=== PATIENT | female | born 2005 | race Caucasian/White ===

== ENCOUNTER 2024-02-16 05:36 | Emergency (ER) | payer MEDICAID ==
[~2024-02-16] VITALS: Ht 162.6 cm; Wt 84.0 kg
[2024-02-16 05:44] VITALS: O2SAT 99
[2024-02-16] MEDS: ACETAMINOPHEN 325MG TABLET PO ONE (06:15)
[2024-02-16 06:16] VITALS: BP 113/72
[2024-02-16] MEDS: KETOROLAC 30MG/ML VIAL IM ONE (06:16)
[2024-02-16] MEDS ORDERED: NAPR-681 MT (07:34)
[2024-02-16 07:49] VITALS: PULSE 79; RESP 18; TEMP 36.89184; O2SAT 100
== END 2024-02-16 07:50 | disposition home or self-care (01) ==
LOC: ER 05:36
DX: M25.562 Pain in left knee (principal); M79.644 Pain in right finger(s); Z90.49 Acquired absence of other specified parts of digestive tract
CPT/HCPCS: 99284; 73120; 73562; 96372; 73140; J1885

== ENCOUNTER 2024-09-13 00:44 | Emergency (ER) | payer MEDICAID ==
[~2024-09-13] VITALS: Ht 160 cm; Wt 92.0 kg
[~2024-09-13 00:44] MED LIST: NAPR-681 MT
[2024-09-13 01:25] VITALS: TEMP 37; O2SAT 99
[2024-09-13 01:51] LABS: BASOPHILS % 0.3 % (0.0-2.0); HEMATOCRIT. 39.7 % (36.0-48.0); HEMOGLOBIN. 13.7 g/dL (12.0-16.0); LYMPHOCYTES % 24.1 % (20.0-50.0); MEAN CORPUSCULAR HEMOGLOBIN 29.2 pg (28.0-32.0); MEAN CORPUSCULAR HGB CONC 34.4 g/dL (31.0-37.0); MEAN CORPUSCULAR VOLUME 84.8 fL (81.0-99.0); MEAN PLATELET VOLUME 10.3 fl (7.4-10.4); MONOCYTES % 10.7 % (2.0-8.0); NEUTROPHILS % 63.9 % (40.0-76.0); PLATELET 192 x1000/uL (130-400); RED BLOOD CELL COUNT 4.69 mill/uL (4.2-5.4); WHITE BLOOD COUNT 11.9 x1000/uL (4.5-11.0)
[2024-09-13 01:54] LABS: CHLORIDE 102 mEq/L (98-107); POTASSIUM 3.4 mEq/L (3.5-5.1); SODIUM 140 mEq/L (136-145)
[2024-09-13 01:55] LABS: CALCIUM 9.4 mg/dL (8.7-10.4); CARBON DIOXIDE 29 mEq/L (21-32)
[2024-09-13 02:00] LABS: CREATININE 0.8 mg/dL (0.6-1.0); GLUCOSE 106 mg/dL (70-105)
[2024-09-13 02:01] LABS: UREA NITROGEN BLOOD 9 mg/dL (9-23)
[2024-09-13 02:02] LABS: ALANINE AMINOTRANSFERASE 18 IU/L (10-49); ALBUMIN 4.6 g/dL (3.2-4.8); ASPARTATE AMINOTRANSFERASE 22 IU/L (<34); BILIRUBIN DIRECT 0.1 mg/dL (<=3.0)
[2024-09-13 02:03] LABS: BILIRUBIN TOTAL 0.4 mg/dL (0.1-1.0); PROTEIN TOTAL 7.7 g/dL (6.0-8.3)
[2024-09-13 06:00] LABS: CLARITY URINE TURBID (CLEAR); COLOR URINE DARK YELLOW (YELLOW); GLUCOSE URINE NEGATIVE (NEGATIVE); KETONES URINE TRACE (NEGATIVE); LEUKOCYTE ESTERASE URINE 1+ (NEGATIVE); NITRITE URINE NEGATIVE (NEGATIVE); OCCULT BLOOD URINE 3+ (NEGATIVE); PROTEIN URINE 1+ (NEGATIVE); SPECIFIC GRAVITY URINE 1.038 (1.005-1.030)
[2024-09-13 07:03] LABS: SQUAMOUS EPITHELIAL CELL URINE 2+ /lpf (RARE/1+)
[2024-09-13 07:10] LABS: BACTERIA URINE 1+
[2024-09-13] MEDS ORDERED: CEPH500C2 MT (07:16)
[2024-09-13 07:48] VITALS: BP 124/71; PULSE 87; RESP 16; O2SAT 99
== END 2024-09-13 07:54 | disposition home or self-care (01) ==
LOC: ER 00:44
DX: N39.0 Urinary tract infection, site not specified (principal); Z79.1 Long term (current) use of non-steroidal anti-inflammatories (NSAID); Z90.49 Acquired absence of other specified parts of digestive tract; Z79.899 Other long term (current) drug therapy
CPT/HCPCS: 36415; 74176; 80048; 80076; 81003; 81025; 85025; 99284

== ENCOUNTER 2024-12-03 02:56 | Emergency (ER) | payer MEDICAID ==
[~2024-12-03] VITALS: Ht 160 cm; Wt 93.4 kg
[~2024-12-03 02:56] MED LIST changes: +CEPH500C2 MT
[2024-12-03 02:58] VITALS: O2SAT 100
[2024-12-03 03:22] LABS: BASOPHILS % 0.5 % (0.0-2.0); EOSINOPHILS % 2.1 % (0.0-5.0); HEMATOCRIT. 38.5 % (36.0-48.0); HEMOGLOBIN. 13.0 g/dL (12.0-16.0); LYMPHOCYTES % 37.1 % (20.0-50.0); MEAN PLATELET VOLUME 10.4 fl (7.4-10.4); MONOCYTES % 9.6 % (2.0-8.0); NEUTROPHILS % 50.7 % (40.0-76.0); PLATELET 191 x1000/uL (130-400); RED BLOOD CELL COUNT 4.63 mill/uL (4.2-5.4); RED CELL DISTRIBUTION WIDTH 13.9 % (11.6-14.6)
[2024-12-03 03:41] LABS: CREATININE 0.8 mg/dL (0.6-1.0); UREA NITROGEN BLOOD 8 mg/dL (9-23)
[2024-12-03] MEDS ORDERED: KETOROLAC 15MG/ML VIAL IM ONE (03:45)
[2024-12-03] MEDS ORDERED: ONDANSETRON 4MG ODT PO ONE (03:45)
[2024-12-03] MEDS: ONDANSETRON HCL 4MG/2ML INJ IV ONE (03:47)
[2024-12-03] MEDS: KETOROLAC 15MG/ML VIAL IV ONE (03:47)
[2024-12-03 04:05] LABS: ASPARTATE AMINOTRANSFERASE 17 IU/L (<34); BILIRUBIN DIRECT < 0.1 mg/dL (<=3.0); BILIRUBIN TOTAL 0.3 mg/dL (0.1-1.0); PROTEIN TOTAL 7.2 g/dL (6.0-8.3)
[2024-12-03 04:33] LABS: HCG SCREEN NEGATIVE
[2024-12-03] MEDS ORDERED: TAMS-54 MT (05:25)
[2024-12-03] MEDS ORDERED: HYDR-4001 MT (05:25)
[2024-12-03] MEDS: IOHEXOL-300 100 ML BOTTLE ONE (05:27)
[2024-12-03 05:39] LABS: CLARITY URINE CLEAR (CLEAR); COLOR URINE YELLOW (YELLOW); GLUCOSE URINE NEGATIVE (NEGATIVE); KETONES URINE NEGATIVE (NEGATIVE); LEUKOCYTE ESTERASE URINE NEGATIVE (NEGATIVE); NITRITE URINE NEGATIVE (NEGATIVE); OCCULT BLOOD URINE 3+ (NEGATIVE); PH URINE 6.0 (4.5-8.0); PROTEIN URINE 1+ (NEGATIVE); SPECIFIC GRAVITY URINE >1.040 (1.005-1.030); UROBILINOGEN URINE 0.2 E.U./dL (0.2-1.0)
[2024-12-03 05:53] VITALS: BP 108/65; PULSE 69; RESP 15; TEMP 36.5; O2SAT 100
[2024-12-03 06:53] LABS: SQUAMOUS EPITHELIAL CELL URINE 1+ /lpf (RARE/1+)
[2024-12-03 06:54] LABS: BACTERIA URINE TRACE; WBC URINE NONE SEEN /hpf (0-2)
== END 2024-12-03 06:04 | disposition home or self-care (01) ==
LOC: ER 02:56
DX: N20.0 Calculus of kidney (principal); Z79.1 Long term (current) use of non-steroidal anti-inflammatories (NSAID); Z90.49 Acquired absence of other specified parts of digestive tract
CPT/HCPCS: 99285; 74177; 96374; 96375; 80076; 80048; 81003; 81025; 84703; 83690; 85025; 36415; J1885; Q9967; J2405

== ENCOUNTER 2024-12-03 20:46 | Inpatient (IN) | payer MEDICAID ==
[~2024-12-03] VITALS: Ht 162.6 cm; Wt 102.1 kg
[~2024-12-03 20:46] MED LIST changes: +HYDR-4001 MT; +TAMS-54 MT
[2024-12-03 20:58] VITALS: O2SAT 99
[2024-12-03 21:43] LABS: CLARITY URINE TURBID (CLEAR); COLOR URINE YELLOW (YELLOW); GLUCOSE URINE NEGATIVE (NEGATIVE); KETONES URINE TRACE (NEGATIVE); LEUKOCYTE ESTERASE URINE 2+ (NEGATIVE); NITRITE URINE NEGATIVE (NEGATIVE); OCCULT BLOOD URINE 2+ (NEGATIVE); PH URINE >=9.0 (4.5-8.0); PROTEIN URINE 2+ (NEGATIVE); SPECIFIC GRAVITY URINE 1.031 (1.005-1.030); UROBILINOGEN URINE 0.2 E.U./dL (0.2-1.0)
[2024-12-03 21:55] LABS: BASOPHILS % 0.2 % (0.0-2.0); EOSINOPHILS % 0.0 % (0.0-5.0); HEMATOCRIT. 41.1 % (36.0-48.0); HEMOGLOBIN. 13.6 g/dL (12.0-16.0); LYMPHOCYTES % 8.2 % (20.0-50.0); MEAN PLATELET VOLUME 10.6 fl (7.4-10.4); MONOCYTES % 6.3 % (2.0-8.0); NEUTROPHILS % 85.3 % (40.0-76.0); PLATELET 210 x1000/uL (130-400); RED BLOOD CELL COUNT 4.90 mill/uL (4.2-5.4); RED CELL DISTRIBUTION WIDTH 13.5 % (11.6-14.6)
[2024-12-03 21:59] LABS: BACTERIA URINE 2+; SQUAMOUS EPITHELIAL CELL URINE 2+ /lpf (RARE/1+)
[2024-12-03 22:06] LABS: HCG SCREEN NEGATIVE
[2024-12-03 22:08] LABS: CREATININE 1.1 mg/dL (0.6-1.0); UREA NITROGEN BLOOD 9 mg/dL (9-23)
[2024-12-03 22:09] LABS: ASPARTATE AMINOTRANSFERASE 22 IU/L (<34)
[2024-12-03 22:10] LABS: BILIRUBIN DIRECT 0.1 mg/dL (<=3.0); BILIRUBIN TOTAL 0.5 mg/dL (0.1-1.0); PROTEIN TOTAL 8.1 g/dL (6.0-8.3)
[2024-12-03] MEDS: MAGNESIUM/ALUMINUM HYDROXIDE/SIMETHICONE 30ML UDC PO ONE (22:10)
[2024-12-03] MEDS: KETOROLAC 15MG/ML VIAL IV ONE (22:10)
[2024-12-03] MEDS: ONDANSETRON HCL 4MG/2ML INJ IV ONE (22:11)
[2024-12-03] MEDS: ACETAMINOPHEN 500MG TABLET PO ONE (22:11)
[2024-12-03] MEDS: SODIUM CHLORIDE 0.9% 1,000 ML IV ONE (23:09)
[2024-12-03] MEDS: SODIUM CHLORIDE 0.9% (SEPSIS BOLUS) IV ONE (23:09)
[2024-12-03] MEDS: CEFTRIAXONE 1GM/50ML 50 ML IV ONE (23:09)
[2024-12-04 01:13] LABS: INR 1.1
[2024-12-04] MEDS ORDERED: IPRATROPIUM/ALBUTEROL 0.5-3(2.5)MG/3ML NEB HHN PRN (01:30)
[2024-12-04] MEDS: KETOROLAC 30MG/ML VIAL IV PRN (01:34)
[2024-12-04] MEDS: ONDANSETRON HCL 4MG/2ML INJ IV PRN (01:34)
[2024-12-04 03:40] VITALS: BP 109/62; PULSE 124; RESP 18; TEMP 36.6; O2SAT 99
[2024-12-04 04:32] VITALS: BP 109/62; PULSE 127; RESP 20; TEMP 36.5848
[2024-12-04] MEDS: DEXT 5%/0.9% NACL 1,000 ML IV SCH (04:51)
[2024-12-04 08:00] VITALS: BP 114/65; PULSE 111; RESP 18; TEMP 36.4; O2SAT 98
[2024-12-04] MEDS: KETOROLAC 30MG/ML VIAL IV SCH (11:50)
[2024-12-04 12:00] VITALS: BP 111/60; PULSE 117; RESP 18; TEMP 37.2; O2SAT 97
[2024-12-04] MEDS ORDERED: MORPHINE SULFATE 2 MG/ML INJ (NOT FOR IM USE) IV SCH (15:45)
[2024-12-04 16:00] VITALS: BP 110/57; PULSE 120; RESP 18; TEMP 36.7; O2SAT 98
[2024-12-04 20:00] VITALS: BP 144/119; PULSE 113; RESP 20; TEMP 38.6; O2SAT 96
[2024-12-04] MEDS: ACETAMINOPHEN 325MG TABLET PO PRN (20:34)
[2024-12-04] MEDS: MORPHINE SULFATE 2 MG/ML INJ (NOT FOR IM USE) IV SCH (20:35)
[2024-12-04] MEDS: CEFTRIAXONE 1GM/50ML 50 ML IV SCH (22:36)
[2024-12-04] MEDS ORDERED: CEFTRIAXONE 1GM/50ML 50 ML IV SCH (23:00)
[2024-12-05] VITALS (11 sets, daily range): BP systolic 81–137; BP diastolic 40–79; PULSE 98–138; RESP 18; TEMP 36.5–38.6; O2SAT 97–99
[2024-12-05 06:37] LABS: HEMATOCRIT. 32.0 % (36.0-48.0); HEMOGLOBIN. 10.8 g/dL (12.0-16.0); MEAN PLATELET VOLUME 11.1 fl (7.4-10.4); PLATELET 132 x1000/uL (130-400); RED BLOOD CELL COUNT 3.83 mill/uL (4.2-5.4); RED CELL DISTRIBUTION WIDTH 13.6 % (11.6-14.6)
[2024-12-05 06:56] LABS: UREA NITROGEN BLOOD 10 mg/dL (9-23)
[2024-12-05 06:58] LABS: PHOSPHORUS 1.9 mg/dL (2.5-4.9)
[2024-12-05 07:03] LABS: CREATININE 1.5 mg/dL (0.6-1.0)
[2024-12-05] MEDS ORDERED: PROPOFOL 200MG/20ML VIAL IV ONE (08:25)
[2024-12-05] MEDS ORDERED: CEFAZOLIN SODIUM 1000MG/VIAL ONE (08:25)
[2024-12-05] MEDS ORDERED: FENTANYL CITRATE/PF 50MCG/ML 2ML VIAL ONE (08:26)
[2024-12-05] MEDS ORDERED: MIDAZOLAM HCL 2 MG/2 ML VIAL ONE (08:26)
[2024-12-05] MEDS ORDERED: LIDOCAINE HCL 1% 20ML VIAL ONE (08:29)
[2024-12-05] MEDS ORDERED: FAMOTIDINE 20MG/2ML VIAL IV ONE (08:35)
[2024-12-05] MEDS ORDERED: ONDANSETRON HCL 4MG/2ML INJ IV PRN ×2 (09:30→11:00)
[2024-12-05] MEDS ORDERED: HYDRALAZINE 20MG/ML VIAL IV PRN ×4 (09:30→11:00)
[2024-12-05] MEDS ORDERED: HYDROMORPHONE HCL/PF 1MG/ML INJ IV PRN (09:30)
[2024-12-05] MEDS ORDERED: FAMOTIDINE 20MG/2ML VIAL IV PRN ×2 (09:30→11:00)
[2024-12-05] MEDS ORDERED: LABETALOL 5MG/ML 4ML INJ IV PRN ×2 (09:30→11:00)
[2024-12-05] MEDS: MEPERIDINE HCL/PF 25MG/ML CPJ IV PRN (09:36)
[2024-12-05] MEDS: ACETAMINOPHEN 1,000MG/100ML PREMIX IV PRN (09:49)
[2024-12-05 10:12] LABS: BAND% 16.0 % (1.0-6.0); EOSINOPHILS % MANUAL 1.0 % (0.0-5.0); LYMPHOCYTES % MANUAL 2.0 % (20.0-60.0); MONOCYTES % MANUAL 8.0 % (2.0-8.0); NEUTROPHILS % MANUAL 73.0 % (45.0-75.0); PLATELET ESTIMATE NORMAL
[2024-12-05] MEDS ORDERED: MEPERIDINE HCL/PF 25MG/ML CPJ IV PRN (11:00)
[2024-12-05] MEDS ORDERED: ACETAMINOPHEN 1,000MG/100ML PREMIX IV PRN (11:00)
[2024-12-05] MEDS ORDERED: HYDROMORPHONE HCL/PF 2MG/ML INJ IV PRN (11:00)
[2024-12-05] MEDS: SODIUM CHLORIDE 0.9% 1,000 ML IV ONE (14:06)
[2024-12-05] MEDS: MIDODRINE HCL 5MG TABLET PO SCH (14:45)
[2024-12-05] MEDS ORDERED: SODIUM CHLORIDE 0.9% 1,000 ML IV SCH (14:54)
[2024-12-05] MEDS: MAGNESIUM 2 G PREMIX 50 ML IV NR (16:22)
[2024-12-05] MEDS: POTASSIUM PHOSPHATE 20 MMOL in DEXT 5% WATER 243.3333 ML IV NR (17:26)
[2024-12-05] MEDS: LEVOFLOXACIN 500MG PREMIX 100 ML IV SCH (17:26)
[2024-12-05] MEDS: SODIUM CHLORIDE 0.9% 1,000 ML IV SCH (21:21)
[2024-12-06 04:00] VITALS: BP 126/71; PULSE 101; RESP 18; TEMP 36.4; O2SAT 97
[2024-12-06 06:59] LABS: HEMATOCRIT. 29.9 % (36.0-48.0); HEMOGLOBIN. 9.8 g/dL (12.0-16.0); MEAN PLATELET VOLUME 11.1 fl (7.4-10.4); PLATELET 99 x1000/uL (130-400); RED BLOOD CELL COUNT 3.56 mill/uL (4.2-5.4); RED CELL DISTRIBUTION WIDTH 13.9 % (11.6-14.6)
[2024-12-06 07:11] LABS: CREATININE 1.3 mg/dL (0.6-1.0); UREA NITROGEN BLOOD 14 mg/dL (9-23)
[2024-12-06 07:14] LABS: PHOSPHORUS 2.4 mg/dL (2.5-4.9)
[2024-12-06 08:25] VITALS: BP 108/61; PULSE 105; RESP 18; TEMP 36.7; O2SAT 95
[2024-12-06] MEDS: KCL 10MEQ/50ML PREMIX 50 ML IV SCH (11:11)
[2024-12-06 12:00] VITALS: BP 107/60; PULSE 111; RESP 20; TEMP 36.7; O2SAT 95
[2024-12-06 14:36] LABS: BAND% 45.0 % (1.0-6.0); LYMPHOCYTES % MANUAL 3.0 % (20.0-60.0); MONOCYTES % MANUAL 3.0 % (2.0-8.0); NEUTROPHILS % MANUAL 49.0 % (45.0-75.0); PLATELET ESTIMATE DECREASED
[2024-12-06] MEDS: SODIUM PHOSPHATE 15 MMOL in DEXT 5% WATER 245 ML IV ONE (16:01)
[2024-12-06] MEDS: LEVOFLOXACIN 750MG PREMIX 150 ML IV SCH (16:02)
[2024-12-06 16:04] VITALS: BP 106/71; PULSE 102; RESP 18; TEMP 36.8; O2SAT 96
[2024-12-06 20:00] VITALS: BP 121/68; PULSE 89; RESP 19; TEMP 36.6; O2SAT 97
[2024-12-06] MEDS: CEFTRIAXONE 2GM/50ML 50 ML IV SCH (21:50)
[2024-12-07] VITALS: BP 119/65; PULSE 80; RESP 18; TEMP 36.4; O2SAT 98
[2024-12-07 04:00] VITALS: BP 131/67; PULSE 79; RESP 18; TEMP 36.7; O2SAT 98
[2024-12-07 06:38] LABS: SODIUM URINE RANDOM 38.0 mEq/L
[2024-12-07 06:45] LABS: CREATININE URINE RANDOM 95.0 mg/dL
[2024-12-07 07:43] LABS: BASOPHILS % 0.3 % (0.0-2.0); EOSINOPHILS % 1.2 % (0.0-5.0); HEMATOCRIT. 32.4 % (36.0-48.0); HEMOGLOBIN. 10.9 g/dL (12.0-16.0); LYMPHOCYTES % 10.9 % (20.0-50.0); MEAN PLATELET VOLUME 11.0 fl (7.4-10.4); MONOCYTES % 5.9 % (2.0-8.0); NEUTROPHILS % 81.7 % (40.0-76.0); PLATELET 145 x1000/uL (130-400); RED BLOOD CELL COUNT 3.90 mill/uL (4.2-5.4); RED CELL DISTRIBUTION WIDTH 13.7 % (11.6-14.6)
[2024-12-07 07:56] LABS: CREATININE 0.9 mg/dL (0.6-1.0); UREA NITROGEN BLOOD 15 mg/dL (9-23)
[2024-12-07 08:00] VITALS: BP 120/70; PULSE 95; RESP 18; TEMP 36.7; O2SAT 95
[2024-12-07] MEDS ORDERED: LEVO750T68 MT (10:49)
[2024-12-07 12:00] VITALS: BP 128/78; PULSE 104; RESP 18; TEMP 36.1; O2SAT 88
[2024-12-07] MEDS: POTASSIUM CHLORIDE 20MEQ TABLET SR PO SCH (12:07)
[2024-12-07 12:28] LABS: PHOSPHORUS 2.6 mg/dL (2.5-4.9)
== END 2024-12-07 15:45 | disposition home or self-care (01) | DRG 720 ==
LOC: ER 20:46 → 7WST 12-04 00:18 → EDBEDREQ 12-04 00:33 → EDBEDREQTM 12-04 00:33 → ENRESERV 12-04 01:07
PROVIDERS: ADMIT Student in an Organized Health Care Education/Training Program; ATTEND Student in an Organized Health Care Education/Training Program
PROC: 0T768DZ Dilation of Right Ureter with Intraluminal Device, Via Natural or Artificial Opening Endoscopic (ICD-10-PCS; principal; 2024-12-05)
PROC: 0TF68ZZ Fragmentation in Right Ureter, Via Natural or Artificial Opening Endoscopic (ICD-10-PCS; 2024-12-05)
DX: A41.59 Other Gram-negative sepsis (principal); N17.0 Acute kidney failure with tubular necrosis; R65.21 Severe sepsis with septic shock; N13.6 Pyonephrosis; E87.6 Hypokalemia; E83.39 Other disorders of phosphorus metabolism; E83.42 Hypomagnesemia; D69.6 Thrombocytopenia, unspecified; D64.9 Anemia, unspecified; Z87.440 Personal history of urinary (tract) infections; Z87.442 Personal history of urinary calculi; Z90.49 Acquired absence of other specified parts of digestive tract
CPT/HCPCS: 36415; 71045; 74176; 74420; 76000; 80048; 80076; 81003; 82550; 82570; 82962; 83605; 83735; 84100; 84145; 84300; 84443; 84703; 85025; 87077; 87186; 93005; 96361; 96365; 96375; 99291; A4606; C1769; J0690; J0696; J1308; J1885; J1956; J2003; J2060; J2175; J2250; J2270; J2405; J2704; J3010; J3475; J3480; J3490; J7030; J7060; C2617; J0131

== ENCOUNTER 2025-03-22 11:39 | Emergency (ER) | payer MEDICAID ==
[~2025-03-22] VITALS: Ht 165.1 cm; Wt 87.0 kg
[~2025-03-22 11:39] MED LIST changes: -CEPH500C2 MT; -HYDR-4001 MT; +LEVO750T68 MT; -NAPR-681 MT; -TAMS-54 MT
[2025-03-22 11:43] VITALS: O2SAT 98
[2025-03-22 11:52] VITALS: BP 105/66; PULSE 68; RESP 14; TEMP 36.8; O2SAT 100
[2025-03-22 12:14] LABS: BASOPHILS % 0.6 % (0.0-2.0); EOSINOPHILS % 1.7 % (0.0-5.0); HEMATOCRIT. 40.0 % (36.0-48.0); HEMOGLOBIN. 13.4 g/dL (12.0-16.0); LYMPHOCYTES % 30.5 % (20.0-50.0); MEAN PLATELET VOLUME 10.6 fl (7.4-10.4); MONOCYTES % 6.6 % (2.0-8.0); NEUTROPHILS % 60.6 % (40.0-76.0); PLATELET 206 x1000/uL (130-400); RED BLOOD CELL COUNT 4.85 mill/uL (4.2-5.4); RED CELL DISTRIBUTION WIDTH 13.2 % (11.6-14.6)
[2025-03-22] MEDS ORDERED: P20 MT (12:25)
[2025-03-22] MEDS ORDERED: DIPH25TA24 MT (12:25)
[2025-03-22 12:28] LABS: CLARITY URINE CLOUDY (CLEAR); COLOR URINE YELLOW (YELLOW); GLUCOSE URINE NEGATIVE (NEGATIVE); KETONES URINE NEGATIVE (NEGATIVE); LEUKOCYTE ESTERASE URINE 2+ (NEGATIVE); NITRITE URINE NEGATIVE (NEGATIVE); OCCULT BLOOD URINE 3+ (NEGATIVE); PH URINE 7.5 (4.5-8.0); PROTEIN URINE 2+ (NEGATIVE); SPECIFIC GRAVITY URINE 1.019 (1.005-1.030); UROBILINOGEN URINE 0.2 E.U./dL (0.2-1.0)
[2025-03-22 12:30] LABS: CREATININE 0.8 mg/dL (0.6-1.0); UREA NITROGEN BLOOD 9 mg/dL (9-23)
[2025-03-22] MEDS ORDERED: CEPH500C2 MT (12:34)
[2025-03-22] MEDS ORDERED: DIPHENHYDRAMINE 50MG CAPSULE PO ONE (12:45)
[2025-03-22 13:05] LABS: BACTERIA URINE 1+; RBC URINE TNTC /hpf (0-2); SQUAMOUS EPITHELIAL CELL URINE 2+ /lpf (RARE/1+); WBC URINE 25-50 /hpf (0-2)
[2025-03-22] MEDS: DIPHENHYDRAMINE 25MG CAPSULE PO NR (13:06)
[2025-03-22] MEDS: DEXAMETHASONE 10 MG/ML VIAL IM ONE (13:12)
[2025-03-22] MEDS: DIPHENHYDRAMINE 50MG CAPSULE PO ONE (13:13)
[2025-03-22] MEDS: CEFTRIAXONE SODIUM 1G VIAL IM NR (13:13)
[2025-03-22 14:20] LABS: PROTEIN TOTAL 7.9 g/dL (6.0-8.3)
[2025-03-22 14:21] LABS: ASPARTATE AMINOTRANSFERASE 21 IU/L (<34); BILIRUBIN DIRECT 0.1 mg/dL (<=3.0); BILIRUBIN TOTAL 0.4 mg/dL (0.1-1.0)
== END 2025-03-22 13:33 | disposition home or self-care (01) ==
LOC: ER 11:39
DX: N39.0 Urinary tract infection, site not specified (principal); T78.40XA Allergy, unspecified, initial encounter
CPT/HCPCS: 99284; 80076; 80048; 81003; 81025; 83690; 85025; 87086; 36415; 96372; Q0163 ×2; J0696; J1100